=== PATIENT | female | born 2000 | race Caucasian/White ===

== ENCOUNTER 2021-02-28 21:02 | Emergency (ER) | payer OTHER ==
[2021-03-01] MEDS ORDERED: NAPROSYN500 MG PO (00:17)
== END 2021-03-01 00:45 | disposition home or self-care (01) ==
LOC: ER1 21:02
DX: S93.402A Sprain of unspecified ligament of left ankle, initial encounter (principal); I10 Essential (primary) hypertension; W18.31XA Fall on same level due to stepping on an object, initial encounter; Y92.009 Unspecified place in unspecified non-institutional (private) residence as the place of occurrence of the external cause
CPT/HCPCS: 73610; 73630; 99283